=== PATIENT | female | born 1980 | race African-American/Black ===

== ENCOUNTER 2016-05-07 20:34 | Emergency (ER) | payer SELFPAY ==
[2016-05-07 20:43] VITALS: TEMP 98.5; BMI 31.1
--- NOTE | 2016-05-07 21:54 | EDPRACDOC ---
- General Information Chief Complaint: Headache Stated Complaint: HEADACHE BACK OF NECK PAIN NAUSEATED Time Seen by Provider: 05/07/16 21:52 Information Source: Patient Home Medications: Home Medications Albuterol Sulfate [Proair Hfa] 2 puff INH Q2H PRN #1 inhaler 04/18/16 Medroxyprogesterone Acet [Depo-Provera] 150 mg IM .[id number] 04/18/16 Prednisone [Deltasone, Orasone] 50 mg PO DAILY #5 tab 04/18/16 Butalb/Acetamin/Caffeine [Fioricet] 1 each PO Q4-6H #30 tab 05/07/16 Cyclobenzaprine HCl [Flexeril] 10 mg PO TID #21 tab 05/07/16 Meloxicam [Mobic] 7.5 mg PO BID #20 tab 05/07/16 Allergies/Adverse Reactions: Allergies Allergy/AdvReac Type Severity Reaction Status Date / Time sulfamethoxazole Allergy Severe SHORT OF Verified 05/07/16 20:41 [From Bactrim DS] BREATHE trimethoprim Allergy Severe SHORT OF Verified 05/07/16 20:41 [From Bactrim DS] BREATHE Sulfa (Sulfonamide Allergy Difficulty Verified 05/07/16 20:41 Antibiotics) Breathing - History of Present Illness Onset: last night HPI: PT PRESENTS TODAY STATING GORDON X 2 DAYS. PT STATES THAT THE PAIN STARTED IN HER NECK, AT THE BASE OF HER HEAD AND SPREAD UPWARDS. STATES THAT THE PAIN HAS CAUSED HER TO FEEL "OFF BALANCE" AND "SHAKY". STATES PMH OF MIGRAINES. UNRELIEVED WITH OTC EXCEDRINE. DENIES FEVER, BLURRED VISION, ENT SYMPTOMS, CP, SHOB, ABD PAIN, N/V/D. NO APPARENT DISTRESS. Location: Reports: Generalized Pain Quality: Reports: Moderate, Throbbing Relevant History of: Reports: Known Headache disorder Associated Signs and Symptoms: Reports: Occasional Headache, Fatigue, Stiff Neck , Other ("BALANCE") ED Past Medical History - History Reviewed Yes Nurses notes reviewed and agree except as marked - Patient Medical History GI/ History: Reports: Kidney Stones, Gastroesophageal Reflux Psychological History: Reports: Anxiety Systemic History: Denies: Cancer, Anemia, Lupus - Family Medical History Reports: Hypertension, Diabetes, Cancer. Denies: Stroke, Cardiac Disorders - Social Medical History Smoking Status: Never smoker EDM Review of Systems - Review of Systems ROS Negative Except as Marked: Yes All systems reviewed and were negative except as marked Constitutional: No Symptoms Reported Eyes: No Symptoms Reported Ears: No Symptoms Reported Throat: No Symptoms Reported Nose: No Symptoms Reported Respiratory: No Symptoms Reported Cardiovascular: No Symptoms Reported Gastrointestinal: No Symptoms Reported Neurological: Dizziness, Headache Musculoskeletal: Neck Integumentary: No Symptoms Reported - Physical Exam Constitutional: Alert (Awake), No apparent distress Oriented to: Time, Person, Place Last recorded Vital Signs: Last Vital Signs Temp 98.5 F 05/07/16 20:41 Pulse 70 05/07/16 20:41 Resp 18 05/07/16 20:41 BP 120/57 L 05/07/16 20:41 Pulse Ox 98 05/07/16 20:41 Oxygen Pulse Oxygen Saturation 98 O2 Device Room Air Oxygen Flow Rate Fraction of Inspired Oxygen ( FIO2) - HEENT Head: Normal Eye Exam: Normal (PERRL; EOMI; RED REFLEX NOTED) Oropharynx: Normal Tympanic Membrane: Normal ENT EAC: Normal Nose: No Symptoms Reported Neck: Limited ROM, Midline, Paraspinal Tenderness - Respiratory/Cardiovascular Respiratory: Normal - CTA Cardiovascular: Normal - GI Palpation: Normal Tenderness: Non tender - Musculoskeletal Back: Normal Extremities: Normal - Integumentary Skin: Normal Lymphatics: Normal - Neurologic Cerebellar: Normal Mood Description: Normal Thought: Coherent Perception: Normal Decision Time to Discharge: 21:54 - Departure Disposition: Home Condition: Stable Final Diagnosis: Tension-type headache Instructions: Tension Headache (ED) Education/Counseling Given To: Patient Education/Counseling Given Regarding: Diagnosis, Treatment, Follow Up Referrals: None,No Provider [Primary Care Provider] - One Week MOIZ METCALF [NonStaff] - One Week Ruddy Angel MD [Staff Physician] - One Week Prescriptions: Butalb/Acetamin/Caffeine [Fioricet] 1 each PO Q4-6H #30 tab Cyclobenzaprine HCl [Flexeril] 10 mg PO TID #21 tab Meloxicam [Mobic] 7.5 mg PO BID #20 tab Additional Instructions: HEATING PAD TO HELP RELAX NECK MUSCLES FOR ADDITIONAL PAIN RELIEF. FOLLOW UP WITH PCP IN 2-3 DAYS IF NEEDED.
[2016-05-07 22:07] VITALS: BP 118/62; PULSE 67
== END 2016-05-07 22:02 | disposition home or self-care (01) ==
LOC: ED 20:34 → EDMC 22:02
DX: G44.209 Tension-type headache, unspecified, not intractable (principal)
CPT/HCPCS: 99282

== ENCOUNTER 2016-05-16 12:01 | Emergency (ER) | payer SELFPAY ==
[2016-05-16 12:20] VITALS: TEMP 99.1; BMI 30.5
[2016-05-16 12:44] LABS: AUTOMATED BASOPHIL 0.4 % (0-2); AUTOMATED EOSINOPHIL 1.2 % (0-5); AUTOMATED LYMPH 36.2 % (17-44); AUTOMATED MONOCYTE 5.3 % (3-10); AUTOMATED NEUTROPHIL 56.9 % (45-76); MPV 9.6 fL (7.4-10.4)
[2016-05-16 12:56] LABS: PARTIAL THROMB. TIME 26.4 SEC (22-35)
[2016-05-16 13:00] LABS: BLOOD UREA NITROGEN 10 MG/DL (7-17); CALCIUM 9.3 MG/DL (8.4-10.2); CALCULATED OSMOLALITY 272 MOs/Kg (270-290); CHLORIDE 106 mEq/L (98-107); GLUCOSE 93 MG/DL (70-99); SODIUM LEVEL 142 mEq/L (137-146)
--- NOTE | 2016-05-16 13:32 | DIRPT ---
CLINICAL DATA: Through attic substernal chest pain. Pain under left breast for 5 days. EXAM: PORTABLE CHEST - 1 VIEW COMPARISON: Two-view chest x-ray 04/18/2016 FINDINGS: The heart size and mediastinal contours are within normal limits. Both lungs are clear. The visualized skeletal structures are unremarkable. IMPRESSION: Negative one-view chest x-ray Electronically Signed By: Norm Lam M.D. On: 05/16/2016 13:29
--- NOTE | 2016-05-16 13:40 | EDPRACDOC ---
- General Information Chief Complaint: Chest Pain Stated Complaint: CHEST PAIN Time Seen by Provider: 05/16/16 13:09 Information Source: Patient Mode of Arrival: Car Home Medications: Home Medications Albuterol Sulfate [Proair Hfa] 2 puff INH Q2H PRN #1 inhaler 04/18/16 Medroxyprogesterone Acet [Depo-Provera] 150 mg IM .[id number] 04/18/16 Prednisone [Deltasone, Orasone] 50 mg PO DAILY #5 tab 04/18/16 Butalb/Acetamin/Caffeine [Fioricet] 1 each PO Q4-6H #30 tab 05/07/16 Cyclobenzaprine HCl [Flexeril] 10 mg PO TID #21 tab 05/07/16 Meloxicam [Mobic] 7.5 mg PO BID #20 tab 05/07/16 Alprazolam [Xanax] 0.25 mg PO Q8H PRN #12 tab 05/16/16 Allergies/Adverse Reactions: Allergies Allergy/AdvReac Type Severity Reaction Status Date / Time sulfamethoxazole Allergy Severe SHORT OF Verified 05/16/16 12:20 [From Bactrim DS] BREATHE trimethoprim Allergy Severe SHORT OF Verified 05/16/16 12:20 [From Bactrim DS] BREATHE Sulfa (Sulfonamide Allergy Difficulty Verified 05/16/16 12:20 Antibiotics) Breathing - History of Present Illness Onset: THURSDAY HPI: HEADACHE LAST WEEK. CHEST PAIN TODAY WITH PALPITATIONS. TIRED, FEELS DRAINED. PT HAS DEPOT. FEELS LIKE SHE CAN'T CATCH HER BREATH. ED Past Medical History - History Reviewed Yes Nurses notes reviewed and agree except as marked - Patient Medical History GI/ History: Reports: Kidney Stones, Gastroesophageal Reflux Psychological History: Reports: Anxiety. Denies: Depression Systemic History: Denies: Cancer, Anemia, Lupus - Family Medical History Reports: Hypertension, Diabetes, Cancer. Denies: Stroke, Cardiac Disorders - Social Medical History Smoking Status: Never smoker EDM Review of Systems - Review of Systems ROS Negative Except as Marked: Yes All systems reviewed and were negative except as marked Constitutional: Fatigue, Weakness Eyes: No Symptoms Reported Respiratory: Shortness of Breath Cardiovascular: Chest Pain Gastrointestinal: No Symptoms Reported Psychiatric: Anxiety, Other (CRYING AT TIMES.) - Physical Exam Constitutional: Alert (Awake), No apparent distress Oriented to: Time, Person, Place Last recorded Vital Signs: Last Vital Signs Temp 99.1 F 05/16/16 12: Pulse 84 05/16/16 13:19 Resp 18 05/16/16 13:19 BP 127/59 L 05/16/16 13:19 Pulse Ox 99 05/16/16 13:19 Oxygen Pulse Oxygen Saturation 99 O2 Device Room Air Oxygen Flow Rate Fraction of Inspired Oxygen ( FIO2) - HEENT Head: Normal ( normocephalic) Eye Exam: Normal (PERRL, EOMI, Sclera white) Oropharynx: Normal (Pharynx:Moist without exudate,Gums-no swelling) Nose: No Symptoms Reported (septum midline) Neck: Normal (FROM, trachea at midline) - Respiratory/Cardiovascular Respiratory: Normal - CTA (BBS clear to auscultation without adventitious sounds ) Cardiovascular: Normal (RRR without murmur, gallop or rub) - GI Auscultation: Normal (NABS) Palpation: Normal (Soft,No rebound or guarding, non distended) Tenderness: Non tender Sanchez's Sign: Negative - Musculoskeletal Back: Normal (Non-Tender) Extremities: Normal (Normal tone, Pulses 2+ No cyanosis or edema, FROM) - Integumentary Skin: Normal, Warm, Dry Lymphatics: Normal (no adenopathy) - Neurologic Memory Impaired: Normal Motor Function: Normal (Normal tone, Pulses 2+ No cyanosis or edema, FROM) Cranial Nerve: Normal (CN II-X11 intact sensation, strength 5/5) Cerebellar: Normal Mood Description: Normal Perception: Normal - Action ASA given in the ED: No Aspirin therapy held due to: Other-specify below* (NOT FELT TO BE CARDIAC. ) - Results 05/16/16 12:28 05/16/16 12:28 WBC 5.5 xk/uL (3.8-10.8) 05/16/16 12:28 RBC 4.69 xM/uL (4.20-5.40) 05/16/16 12:28 Hgb 14.0 g/dL (12.0-16.0) 05/16/16 12:28 Hct 42.2 % (36-47) 05/16/16 12:28 MCV 90 fL (81-99) 05/16/16 12:28 MCH 29.8 pg (27-32) 05/16/16 12:28 MCHC 33.1 g/dl (33-36) 05/16/16 12:28 RDW 13.1 % (11.5-14.5) 05/16/16 12:28 Plt Count 202 xk/uL (130-400) 05/16/16 12:28 MPV 9.6 fL (7.4-10.4) 05/16/16 12:28 Neut % (Auto) 56.9 % (45-76) 05/16/16 12:28 Lymph % (Auto) 36.2 % (17-44) 05/16/16 12:28 [place] % (Auto) 5.3 % (3-10) 05/16/16 12: Eos % (Auto) 1.2 % (0-5) 05/16/16 12: Baso % (Auto) 0.4 % (0-2) 05/16/16 12:28 Absolute Neuts (auto) 3.08 xk/uL (1.7-8.2) 05/16/16 12: Absolute Lymphs (auto) 1.98 xk/uL (0.65-4.75) 05/16/16 12:28 PT 10.0 SEC (9.2-11.2) 05/16/16 12:28 INR 1.0 05/16/16 12:28 APTT 26.4 SEC (22-35) 05/16/16 12:28 Sodium 142 mEq/L (137-146) 05/16/16 12:28 Potassium 3.9 mEq/L (3.5-5.1) 05/16/16 12:28 Chloride 106 mEq/L (98-107) 05/16/16 12:28 Carbon Dioxide 24 mMOL/L (22-33) 05/16/16 12:28 Anion Gap 16 mEq/L (8-16) 05/16/16 12:28 BUN 10 MG/DL (7-17) 05/16/16 12:28 Creatinine 0.80 MG/DL (0.52-1.04) 05/16/16 12:28 Estimated GFR (MDRD) > 60 mL/min (>=60) 05/16/16 12:28 Glucose 93 MG/DL (70-99) 05/16/16 12:28 Calculated Osmolality 272 MOs/Kg (270-290) 05/16/16 12:28 Calcium 9.3 MG/DL (8.4-10.2) 05/16/16 12:28 Total Bilirubin 0.7 MG/DL (0.2-1.3) 05/16/16 12:28 AST 18 IU/L (14-36) 05/16/16 12:28 ALT 23 IU/L (9-52) 05/16/16 12:28 Alkaline Phosphatase 74 IU/L (38-126) 05/16/16 12:28 Troponin I < 0.01 ng/mL (<.04) 05/16/16 12:28 Xtr-D-Ckspzcazhsp Pept 43 pg/mL (0-450) 05/16/16 12:28 Total Protein 8.0 G/DL (6.3-8.2) 05/16/16 12:28 Albumin 4.4 G/DL (3.5-5.0) 05/16/16 12:28 Lab Results 05/16/16 05/16/16 05/16/16 12:28 12:28 12:28 WBC 5.5 RBC 4.69 Hgb 14.0 Hct 42.2 MCV 90 MCH 29.8 MCHC 33.1 RDW 13.1 Plt Count 202 MPV 9.6 Neut % (Auto) 56.9 Lymph % (Auto) 36.2 [place] % (Auto) 5.3 Eos % (Auto) 1.2 Baso % (Auto) 0.4 Absolute Neuts (auto) 3.08 Absolute Lymphs (auto) 1.98 PT 10.0 INR 1.0 APTT 26.4 Sodium 142 Potassium 3.9 Chloride 106 Carbon Dioxide 24 Anion Gap 16 BUN 10 Creatinine 0.80 Estimated GFR (MDRD) > 60 Glucose 93 Calculated Osmolality 272 Calcium 9.3 Total Bilirubin 0.7 AST 18 ALT 23 Alkaline Phosphatase 74 Troponin I < 0.01 Ire-M-Izvljgisqzo Pept 43 Total Protein 8.0 Albumin 4.4 Laboratory Results - last 24 hr 05/16/16 05/16/16 05/16/16 12:28 12:28 12:28 WBC 5.5 RBC 4.69 Hgb 14.0 Hct 42.2 MCV 90 MCH 29.8 MCHC 33.1 RDW 13.1 Plt Count 202 MPV 9.6 Neut % (Auto) 56.9 Lymph % (Auto) 36.2 [place] % (Auto) 5.3 Eos % (Auto) 1.2 Baso % (Auto) 0.4 Absolute Neuts (auto) 3.08 Absolute Lymphs (auto) 1.98 PT 10.0 INR 1.0 APTT 26.4 Sodium 142 Potassium 3.9 Chloride 106 Carbon Dioxide 24 Anion Gap 16 BUN 10 Creatinine 0.80 Estimated GFR (MDRD) > 60 Glucose 93 Calculated Osmolality 272 Calcium 9.3 Total Bilirubin 0.7 AST 18 ALT 23 Alkaline Phosphatase 74 Troponin I < 0.01 Gry-K-Sfikcqqtjow Pept 43 Total Protein 8.0 Albumin 4.4 Laboratory Results 05/16/16 12:28 05/16/16 12:28 - EKG EKG #1 EKG Time: 12:13 -: Yes EKG interpreted by me Rate: bpm: 99 [place]: Normal Rhythm: NSR Block: None Hypertrophy: None ST: Normal Comments: NORMAL EKG Decision Time to Discharge: 13:45 - Departure Yes I personally saw and evaluated the patient. Disposition: Home Condition: Stable Final Diagnosis: Anxiety Instructions: Anxiety (ED) Education/Counseling Given To: Patient Education/Counseling Given Regarding: Diagnosis Referrals: None,No Provider [Primary Care Provider] - One Week Prescriptions: Alprazolam [Xanax] 0.25 mg PO Q8H PRN #12 tab PRN Reason: Anxiety
[2016-05-16 14:07] VITALS: BP 106/59; PULSE 57
== END 2016-05-16 14:06 | disposition home or self-care (01) ==
LOC: ED 12:01
DX: F41.9 Anxiety disorder, unspecified (principal)
CPT/HCPCS: 36415; 71010; 80053; 83880; 84484; 85025; 85610; 85730; 93005; 99284

== ENCOUNTER 2016-05-18 19:32 | Emergency (ER) | payer SELFPAY ==
[2016-05-18] MEDS ORDERED: LORAZEPAM 1 MG TAB PO ONE (21:14)
--- NOTE | 2016-05-18 21:28 | EDPRACDOC ---
- General Information Stated Complaint: ANXIETY Time Seen by Provider: 05/18/16 21:14 Information Source: Patient Home Medications: Home Medications Albuterol Sulfate [Proair Hfa] 2 puff INH Q2H PRN #1 inhaler 04/18/16 Medroxyprogesterone Acet [Depo-Provera] 150 mg IM .[id number] 04/18/16 Prednisone [Deltasone, Orasone] 50 mg PO DAILY #5 tab 04/18/16 Butalb/Acetamin/Caffeine [Fioricet] 1 each PO Q4-6H #30 tab 05/07/16 Cyclobenzaprine HCl [Flexeril] 10 mg PO TID #21 tab 05/07/16 Meloxicam [Mobic] 7.5 mg PO BID #20 tab 05/07/16 Alprazolam [Xanax] 0.25 mg PO Q8H PRN #12 tab 05/16/16 Fluoxetine [Prozac] 20 mg PO QAM #30 cap 05/18/16 Lorazepam [Ativan] 0.5 mg PO BID PRN #10 tab 05/18/16 Allergies/Adverse Reactions: Allergies Allergy/AdvReac Type Severity Reaction Status Date / Time sulfamethoxazole Allergy Severe SHORT OF Verified 05/16/16 12:20 [From Bactrim DS] BREATHE trimethoprim Allergy Severe SHORT OF Verified 05/16/16 12:20 [From Bactrim DS] BREATHE Sulfa (Sulfonamide Allergy Difficulty Verified 05/16/16 12:20 Antibiotics) Breathing - History of Present Illness Onset: 1-2 WEEKS HPI: PT STATES SHE HAS BEEN SEEN HERE 2 OTHER TIMES FOR SIMILAR SYMPTOMS AND WAS EVENTUALLY DXD WITH PANIC ATTACKS AND GIVEN RX FOR XANAX TONIGHT SHE STATES SHE NEVER GOT THAT FILLED BECAUSE WHEN SHE TAKES XANAX SHE CANT FUNCTION NORMALLY IT JUST KNOCKS HER OUT. SHE STATES SHE HAD SIMILAR PROBLEM IN 2003 WITH THE SAME THING AND SHE HAD RX FOR ATIVAN THAT WORKED BETTER FOR HER. PT IS ASKING IF THERE IS SOMETHING SHE CAN TAKE DAILY TO HELP CONTROL THIS BECAUSE SHE HAS TO WORK. Reason for Seeking Treatment: Self-referral Presents With: Reports: Anxiety Expresses: Reports: None Suicidal Plan: Reports: None Relevant History: Reports: Anxiety Tetanus Up To Date?: Yes Able to Care for Self: Yes Able to Control Self: No (NOT DURING PANIC ATTACK) Associated Signs and Symptoms: Reports: Anxiety ED Past Medical History - History Reviewed Yes Nurses notes reviewed and agree except as marked Travel Outside of [place] in the Last 3 Months?: No - Patient Medical History GI/ History: Reports: Kidney Stones, Gastroesophageal Reflux Psychological History: Reports: Anxiety. Denies: Depression Systemic History: Denies: Cancer, Anemia, Lupus - Family Medical History Reports: Hypertension, Diabetes, Cancer. Denies: Stroke, Cardiac Disorders - Social Medical History Smoking Status: Never smoker ETOH: None Substance Abuse: None Lives With: Other Lives In: Home EDM Review of Systems - Review of Systems ROS Negative Except as Marked: Yes All systems reviewed and were negative except as marked Constitutional: No Symptoms Reported. negative: Fever, Chills, Weakness, Fatigue, Loss of Appetite Eyes: No Symptoms Reported. negative: Redness, Blurred Vision, Double Vision, Discharge, Pain, Light Sensitive, Photophobia Ears: No Symptoms Reported. negative: Pain, Hearing Loss, Drainage, Ear Pulling Throat: No Symptoms Reported. negative: Pain, Swelling Nose: No Symptoms Reported. negative: Congestion, Bleeding, Discharge, Injection, Swelling, Deformity, Ecchymosis, Tender, Abrasion, Laceration Mouth: No Symptoms Reported. negative: Pain, Drooling Respiratory: No Symptoms Reported. negative: Cough, Brassy Cough, Barky Cough, Shortness of Breath, Wheezing, Hemoptysis Cardiovascular: No Symptoms Reported. negative: Chest Pain, Palpitations, Syncope, Edema, Orthopnea, PND, Skin Mottling, Cyanosis Gastrointestinal: No Symptoms Reported. negative: Pain, Constipation, Nausea, Vomiting, Diarrhea, Melena, Formula Intolerance Genitourinary: No Symptoms Reported. negative: Dysuria, Hematuria, Frequency, Discharge, Bleeding, Testicular Pain, Neurological: No Symptoms Reported. negative: Headache, Dizziness, Seizure, Numbness, Weakness, Speech Difficulty, Gait Difficulty Musculoskeletal: No Symptoms Reported. negative: Neck, Chestwall, Ribs, Back, Shoulder, Arm, Elbow, Forearm, Wrist, Hand, Pelvis, Hip, Femur, Knee, Leg, Ankle , Foot Integumentary: No Symptoms Reported. negative: Itching, Rash, Bruising, Wound Allergic/Immunologic: No Symptoms Reported. negative: Hives, Itching Hematologic: No Symptoms Reported. negative: Lymphadenopathy, Easy Bruising, Easy Bleeding Endocrine: No Symptoms Reported. negative: Weight Gain, Weight Loss Psychiatric: Anxiety. negative: Depression, Hallucinations, Insomnia, Suicidal - Physical Exam Constitutional: Alert (Awake), Other (ANXIOUS) Oriented to: Time, Person, Place Last recorded Vital Signs: Oxygen Pulse Oxygen Saturation O2 Device Oxygen Flow Rate Fraction of Inspired Oxygen ( FIO2) - HEENT Head: Normal ( normocephalic) Eye Exam: Normal (PERRL, EOMI, Sclera white) Oropharynx: Normal (Pharynx:Moist without exudate,Gums-no swelling) Tympanic Membrane: Normal ENT EAC: Normal TMJ: Normal Nose: No Symptoms Reported (septum midline) Neck: Normal (FROM, trachea at midline) - Respiratory/Cardiovascular Respiratory: Normal - CTA (BBS clear to auscultation without adventitious sounds ) Cardiovascular: Normal (RRR without murmur, gallop or rub) - GI Auscultation: Normal (NABS) Palpation: Normal (Soft,No rebound or guarding, non distended) Tenderness: Non tender Sanchez's Sign: Negative - Musculoskeletal Back: Normal (Non-Tender) Extremities: Normal (Normal tone, Pulses 2+ No cyanosis or edema, FROM) - Integumentary Skin: Normal, Warm, Dry Lymphatics: Normal (no adenopathy) - Neurologic Memory Impaired: Normal Motor Function: Normal (Normal tone, Pulses 2+ No cyanosis or edema, FROM) Cranial Nerve: Normal (CN II-X11 intact sensation, strength 5/5) Cerebellar: Normal Mood Description: Normal Perception: Normal Initial Evaluation Apperance: Neat, Stated Age Attitude: Cooperative Mood: Anxious Affect: Congruent w/ mood Insight: Good Judgement: Good Memory Description: Intact Anxiety Symptoms: Reports: Panic Attacks Delusion Description: Reports: Not Present Hallucination Type: Reports: None Hallucinations Severity: Reports: None Recommend /or Refer: Outpatient Therapy - Differential Diagnosis Depression, Panic disorder - Additional Information Additional Information: PT DID BRING THE XANAX RX BACK TONIGHT AND WE HAVE PROPERLY DISPOSED OF THAT. Decision Time to Discharge: 21:30 - Departure Disposition: Home Condition: Stable Final Diagnosis: Panic attacks Instructions: Panic Attack (ED) Education/Counseling Given To: Patient Education/Counseling Given Regarding: Diagnosis, Treatment, Prognosis, Follow Up Referrals: None,No Provider [Primary Care Provider] - One Week Prescriptions: Fluoxetine [Prozac] 20 mg PO QAM #30 cap Lorazepam [Ativan] 0.5 mg PO BID PRN #10 tab PRN Reason: Anxiety
[2016-05-18 21:36] VITALS: TEMP 98.8; BMI 30.3
[2016-05-18 22:09] VITALS: BP 116/65; PULSE 75
== END 2016-05-18 22:10 | disposition home or self-care (01) ==
LOC: EDMC 19:32
DX: F41.0 Panic disorder [episodic paroxysmal anxiety] (principal)
CPT/HCPCS: 99283; J3490